=== PATIENT | female | born 1975 | race African-American/Black ===

== ENCOUNTER 2022-04-01 17:30 | Outpatient (CLI) | payer BC | END 2022-04-01 17:31 | disposition home or self-care (01) | LOC: SLEEPLAB 17:30 | PROVIDERS: ATTEND Family Medicine | DX: G47.33 Obstructive sleep apnea (adult) (pediatric) (principal); R53.83 Other fatigue; R06.83 Snoring; G47.00 Insomnia, unspecified | CPT/HCPCS: 95800 ==